=== PATIENT | female | born 1960 | race African-American/Black ===

== ENCOUNTER → 2016-12-27 | Outpatient (CLI) | payer OTHER ==
[2014-12-23 07:22] VITALS: BP 142/102
--- NOTE | 2016-12-29 17:09 | MG ---
HISTORY: SCREENING Comparison: June 17, 2009 and December 31, 2015 FINDINGS: Bilateral CC and MLO projections of the right and left breast were obtained. Scattered fibroglandula r tissue is seen to be present. The left breast is mammographically stable. On the right, there are possible developing sub cm nodules in the upper outer and lower medial quadrant at mid depth for whic h further imaging evaluation is recommended. No skin thickening or nipple retraction is appreciated. No pathological lymphadenopathy can be identified. IMPRESSION: Possible developing nodules right breast for which follow-up spot magnification and poss ibly ultrasound are recommended. ACR CATEGORY 0 - assessment incomplete; additional imaging recommended. Diagnostic CAD was utilized and reviewed. * 0 (ZERO) - ASSESSMENT INCOMPLETE; ADDITIONAL IMAGING IS NEEDED. * 1/1 (ONE) - NEGATIVE. * 2/II (TWO) - BENIGN FINDINGS. * 3/III (THREE) - PROBABLY BENIGN FINDING; SHORT INTERVAL FOLLOW-UP SUGGESTED. * 4/IV (FOUR) - SUSPICIOUS ABNORMALITY; BIOPSY SHOULD BE CONSIDERED. * 5/V - HIGHLY SUSPICIOUS OF MALIGNANCY; BIOPSY SHOULD BE PERFORMED. A NEGATIVE X-RAY REPORT SHOULD NOT DELAY BIOPSY IF A DOMINANT OR CLINICALLY SUSPICIOUS MASS IS PRESENT; 4 TO 8 PERCENT OF CANCERS ARE NOT IDENTIFIED BY X-RAY. A NEGA TIVE REPORT MAY REINFORCE THE CLINICAL IMPRESSION. ADENOSIS AND DENSE BREASTS MAY OBSCURE AN UNDERLY ING NEOPLASM. Reported By:
== END ==
LOC: RAD 09:44
PROVIDERS: ATTEND Specialist
DX: Z12.31 Encounter for screening mammogram for malignant neoplasm of breast (principal); R92.8 Other abnormal and inconclusive findings on diagnostic imaging of breast
CPT/HCPCS: 77067

== ENCOUNTER → 2017-01-06 | Outpatient (CLI) | payer OTHER ==
[2014-12-23 07:22] VITALS: BP 142/102
--- NOTE | 2017-01-06 15:17 | US ---
HISTORY: Abnormal screening mammography with developing nodules Right breast digital diagnostic mammography with CAD and right breast ultrasound. Comparison: Multiple previous exams dating back to June 17, 2009 FINDINGS: Mammogram: Spot magnification and mL views of the right breast were obtained. Scattered fibroglandul ar tissue is seen to be present. There persistent sub cm partially obscured and partially circumscri bed isodense nodules in the upper outer and lower medial quadrants which will be correlated with ultr asound. No skin thickening or nipple retraction is appreciated. No pathological lymphadenopathy ca n be identified. Ultrasound: Multiple grayscale and color Doppler images of the right breast were obtained along the l ower medial and upper outer quadrants. At 11 o'clock approximately 4 cm from the nipple, there is a h orizontally oriented macro lobulated but predominantly smoothly marginated and well circumscribed hyp oechoic nodule with posterior acoustical enhancement and no internal Doppler flow favored to represen t a complex cyst with internal debris and septations. There is a similar smaller heterogeneous mixed echogenicity nodule at 3 o'clock approximately 2 cm from the nipple measuring 5 mm. Findings are felt to correspond to the mammographic nodules and most likely reflect benign mildly complex cyst with th e smaller lesion perhaps reflecting an intramammary lymph node. A more aggressive process is unlikely , but short-term follow-up is recommended. There are no suspicious cystic or solid nodules to warrant biopsy at this time. IMPRESSION: Probably benign right breast nodules for which six-month follow-up right breast mammogra phy and ultrasound are recommended. ACR CATEGORY 3 - probably benign findings; short interval follow-up suggested. Diagnostic CAD was utilized and reviewed. * 0 (ZERO) - ASSESSMENT INCOMPLETE; ADDITIONAL IMAGING IS NEEDED. * 1/1 (ONE) - NEGATIVE. * 2/II (TWO) - BENIGN FINDINGS. * 3/III (THREE) - PROBABLY BENIGN FINDING; SHORT INTERVAL FOLLOW-UP SUGGESTED. * 4/IV (FOUR) - SUSPICIOUS ABNORMALITY; BIOPSY SHOULD BE CONSIDERED. * 5/V - HIGHLY SUSPICIOUS OF MALIGNANCY; BIOPSY SHOULD BE PERFORMED. A NEGATIVE X-RAY REPORT SHOULD NOT DELAY BIOPSY IF A DOMINANT OR CLINICALLY SUSPICIOUS MASS IS PRESENT; 4 TO 8 PERCENT OF CANCERS ARE NOT IDENTIFIED BY X-RAY. A NEGA TIVE REPORT MAY REINFORCE THE CLINICAL IMPRESSION. ADENOSIS AND DENSE BREASTS MAY OBSCURE AN UNDERLY ING NEOPLASM. Reported By:
== END ==
LOC: RAD 13:39
PROVIDERS: ATTEND Specialist
DX: R92.8 Other abnormal and inconclusive findings on diagnostic imaging of breast (principal)
CPT/HCPCS: 76642; 77065